=== PATIENT | female | born 1990 | race Caucasian/White ===

== ENCOUNTER 2018-05-28 15:16 | Emergency (ER) | payer MEDICAID ==
--- OUTSIDE RECORDS SUMMARY | 2018-05-28 15:28 | XMS REPORT | Continuity of Care Document ---
:1990 External Reference #:[id number] Author Name Charito Hernandez NP Address [address] [place] [id number] Care Team Providers Name Role Phone Ivone Devine MD Primary Care Physician Unavailable Payers Type Date Identification Numbers Payment Provider Subscriber Expires: 2018 Policy Number: [id number] Gerson Galvez PayID: [id number] [place] [address] Effective: 2018 Policy Number: [id number] Medicaid -Jay Bonny Galvez PayID: [id number] [place] [address] Advance Directives Description No Information Available Problems Date Description Provider Status Onset: 01/21/2015 Smoker Sancho Baker NP Active Onset: 01/21/2015 Drug abuse Sancho Baker NP Active Family History Date Family Member(s) Problem(s) Comments General Colon Cancer Maternal grandfather Father Alive Father No Current Problems Mother Alive Mother No Current Problems ( previous history said mom had breast cancer, patient now denies.) Social History Type Date Description Comments Sex Female Education Highest level completed, 1 year of college Marital Status Legal Status: Work Status Unemployed Tobacco Use Reviewed: Never Smoked Cigars 05/22/18 Tobacco Use Reviewed: Never Smoked A Pipe 05/22/18 Smoking Status Reviewed: Never Smoked A Pipe 05/22/18 Tobacco Use Reviewed: Never Used Smokeless 05/22/18 Tobacco ETOH Use Denies alcohol use Recreational Drug Use Former Drug User Recent rehab, entering correction house this month. Tobacco Use Reviewed: Light tobacco smoker 05/22/18 (10 or fewer cigarettes/day) Tattoo/Piercing Tattoo professionally completed Sun Exposure Does not use sunscreen Currently Active Patient is currently not sexually active Last [place] 3 months ago Condom Use Frequently Contraceptive Methods Past methods include and nexplanon in 2012 condoms Age 1st [place] 12 Years Old # Partners in a Lifetime 1 over the past 2 years. STD's Chlamydia 2011 UNKNOWN 05/22/2018 Never E-Cigarette user Allergies, Adverse Reactions, Alerts Date Description Reaction Status Severity Comments 01/21/2015 Latex Active 01/21/2015 Aspirin Active 01/21/2015 Ibuprofen Active Medications Medication Date Status Form Strength Qnty SIG Indications Ordering Provider Ortho Active Tablets 0.35mg 28tabs take one Z30.011 In [facility] Micronor 018 table every MD Arnoldo day Ortho Active Tablets 0.35mg 84tabs take one Z30.011 In [facility] Micronor 018 table every MD Arnoldo day Lexapro Active Unknown 000 Gabapentin Active Tablets 600mg 3 times a Unknown 000 day Metrogel-Vagi Hx Gel 0.75% QS 1 applicator 616.10 Sancho nal 015 - at night for DIPESH Baker 5 nights. 018 Neurontin /0 Hx Unknown 000 - 018 Topamax //0 Hx Unknown 000 - 018 Trazodone HCL 0 Hx Unknown 000 - 018 Ativan /0 Hx Unknown 000 - 018 Immunizations Description No Information Available Vital Signs Date Vital Result Comment 05/22/2018 12:01pm BP Systolic 112 mmHg BP Diastolic 68 mmHg Height 71 inches 5'11" Weight 146.00 lb BMI (Body Mass Index) 20.4 kg/m2 01/21/2015 11:31am BP Systolic 80 mmHg BP Diastolic 60 mmHg Height 69.5 inches 5'9.50" Weight 138.00 lb BMI (Body Mass Index) 20.1 kg/m2 Last Menstrual Period [id number] Results Test Date Facility Test Result H/L Range Note Laboratory test 05/22/2018 [facility] Test neg finding Urine..... Chlam 01/21/2015 [facility] C.Trachomatis NOT DETECTED Not Detected 1 Trach/Neisseria Rna,Tma Gonorroeae Rna Tma N.Gonorrhoeae Rna,Tma NOT DETECTED Not Detected 2 Thinprep Pap Field Map Technician W/RFX HPV Mrna E6/E7 01/21/2015 [facility] Results SEE NOTE 3 Wet Prep.... 01/21/2015 [facility] WBC Smear 5-6 Clue Cells Vag Fluid Wet Prep + Judy Wet Prep - Lactobacillus Wet Prep _ Whiff Wet Prep + Bacteria Wet Prep + PH Wet Prep 5.0 Misc Other Test _ Laboratory test finding 01/21/2015 [facility] Test Urine..... neg Jay Annual Lab Set 01/21/2015 [facility] HGB Blood.... 15.4 Urinalysis DIP Only.... 01/21/2015 [facility] Urine Leukocyte Esterase QN + Urine Nitrite QN N Urine Blood N Urine PH 5 Urine Protein Random ++ Urine Ketone Random + Urine Glucose QN Random N 1 This test was performed using the APTIMA COMBO2(R) Assay (GEN-PROBE(R). The analytical performance characteristics of this assay, when used to test SurePath(R) specimens have been determined by [employer]. 2 This test was performed using the APTIMA COMBO2(R) Assay (GEN-PROBE(R). The analytical performance characteristics of this assay, when used to test SurePath(R) specimens have been determined by [employer]. 3 GYNECOLOGICAL CYTOLOGY REPORT Thinprep TIS PAP w/rfx to HPV E6/E7 REPORT STATUS: FINAL CLINICAL INFORMATION: Routine exam SLIDES / SOURCE: 1 / Cervix, Endocervix STATEMENT OF ADEQUACY: Satisfactory for evaluation. Endocervical/transformation zone component present. GENERAL CATEGORIZATION: EPITHELIAL CELL ABNORMALITY INTERPRETATION/RESULT: Atypical Squamous Cells of Undetermined Significance (ASC-US) Shift in vaginal nanda suggestive of bacterial vaginosis. COMMENT: This Pap test has been evaluated with computer assisted technology. CONTRACT PROJECT MANAGER: ANALY MERCADO([facility]) For informational purposes: All cytology specimens are [facility] at [facility]. [address] [place] [id number] PATHOLOGIST: Charity Barnett MD, Board Certified in Anatomic Pathology and Cytopathology (electronic signature) For questions regarding this report call Anatomic Pathology at [phone] HPV mRNA E6/E7 HPV mRNA E6E7 Detected REFERENCE RANGE: NOT DETECTED This test was performed using the APTIMA HPV Assay ([employer] This assay detects E6/E7 viral messenger RNA (mRNA) from 14 high-risk HPV types (16,18,31,33,35,39,45,51,52,56,58,59,66,68). 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 11:00a (general) (routine) w/o abn findings Z30.011 Encounter for initial prescription of contraceptive pills N91.2 Amenorrhea, unspecified Z12.4 Encounter for screening for malignant neoplasm of cervix Z32.02 Encounter for test, result negative Z11.3 Encntr screen for infections w sexl mode of transmiss E04.1 Nontoxic single thyroid nodule Plan of Treatment Future Appointment(s):06/05/2018 9:30 am - CERTIFIED COATINGS INSPECTOR at [facility]05/22/2018 - Charito Hernandez NPZ01.419 Encounter for gynecological examination (general) (routine) Comments:Reviewed healthy diet, exercise and safety with patient who states understanding.Counseled on Preventive , STI Awareness, Seat Belt Use, and Self Breast ExamFollow up:F/u in one year for annual. Sooner prn any concerns.Z30.011 Encounter for initial prescription of contraceptive pillsNew Medication:Ortho Micronor 0.35 mg - take one table every dayOrtho Micronor 0.35 mg - take one table every dayComments:Start OBC today after labs are drawn , use back up method for 7 days. Call for any shortness of breath, chest, leg, or arm pain that is sudden and severe. Call for abnormal pkfarcyuO15.2 Amenorrhea, unspecifiedNew Labs:HCG Beta QN, Ordered: 05/22/18TSH & Free T4, Ordered: SH & LH, Ordered: 05/22/18HGB Blood...., Ordered: 05/22/18Esr Sedimentation Rate, Ordered: 05/22/18Prolactin Baseline, Ordered: Comments:Obtain labs prior to starting OBC todayFollow up:2 cesieV50.4 Encounter for screening for malignant neoplasm of iashxcN33.02 Encounter for test, result pjckkkrhA63.3 Encounter for screening for infections with a predominantly sexual mode of transmissionFollow up:Follow up if any further symptoms.E04.1 Nontoxic single thyroid nodule
[2018-05-28 15:39] VITALS: BP 113/62
--- NOTE | 2018-05-28 16:00 | UC ---
Complaint Female HPI - HPI Summary HPI Summary: 28 year old female presents with 2 day history of dysuria, frequency, urgency, and sensation that she is unable to fully empty her bladder. Associated with some low back pain. Denies fever, chills, abdominal pain, nausea, vomiting, hematuria, vaginal discharge, or dyspareunia. LMP unknown. - History Of Current Complaint Chief Complaint: UCGU Stated Complaint: URINARY Time Seen by Provider: 05/28/18 15:38 Hx Obtained From: Patient Hx Last Menstrual Period: JANUARY 2010, HAS HAD PREG TEST WHICH WERE NEGATIVE. Onset/Duration: Gradual Onset, Lasting Days - 2 Timing: Intermittent Severity Currently: Moderate Pain Intensity: 5 Character: Burning Aggravating Factor(s): Urination Alleviating Factor(s): Nothing Associated Signs And Symptoms: Positive: Back Pain. Negative: Fever, Vaginal Bleeding/Discharge, Vaginal Discharge, Nausea, Vomiting(# Of Episodes =), Genital Swelling, Genital Blisters - Allergies/Home Medications Allergies/Adverse Reactions: Allergies Allergy/AdvReac Type Severity Reaction Status Date / Time latex Allergy Unknown rash, Verified 05/28/18 15:30 itching and redness Home Medications: Home Medications Escitalopram Oxalate [Lexapro 20 mg] 20 mg PO DAILY 05/28/18 [History Confirmed 05/28/18] Gabapentin CAP(*) [Neurontin 300 CAP(*)] 300 mg PO TID 05/28/18 [History Confirmed 05/28/18] cloNIDine TAB* [Catapres 0.1 MG TAB*] 0.1 mg PO DAILY 05/28/18 [History Confirmed 05/28/18] PMH/Surg Hx/FS Hx/Imm Hx Previously Healthy: Yes Psychological History: Anxiety, Depression - Surgical History Surgical History: Yes Surgery Procedure, Year, and Place: emergency laparotomy 06/2012/left fallopian tube removed [facility] for ectopic . EMERGENCY C- SECTION - Family History Known Family History: Positive: Non-Contributory - Social History Occupation: Unemployed Lives: Alone Alcohol Use: None Substance Use Type: None Substance Use Comment - Amount & Last Used: 2 times a week Smoking Status (MU): Current Every Day Smoker Type: Cigarettes Amount Used/How Often: 1/2 PPD Have You Smoked in the Last Year: Yes When Did the Patient Quit Smoking/Using Tobacco: 2011 Household Exposure Type: Cigarettes - Immunization History Most Recent Influenza Vaccination: yes Review of Systems All Other Systems Reviewed And Are Negative: Yes Constitutional: Negative: Fever, Chills Gastrointestinal: Negative: Abdominal Pain, Vomiting, Nausea Genitourinary: Positive: Dysuria, Frequency, Urgency. Negative: Hematuria, Vaginal/Penile Burning, Vaginal/Penile Itching, Vaginal/Penile Discharge, Vaginal/Penile Pain, Vaginal/Penile Tenderness, Ulceration/Lesion, Abnormal Bleeding Is Patient Immunocompromised?: No Physical Exam - Summary Physical Exam Summary: GENERAL APPEARANCE: Well developed, well nourished, alert and cooperative, and appears to be in no acute distress. CARDIAC: Normal S1 and S2. No S3, S4 or murmurs. Rhythm is regular. There is no peripheral edema, cyanosis or pallor. Extremities are warm and well perfused. Capillary refill is less than 2 seconds. LUNGS: Clear to auscultation and percussion without rales, rhonchi, wheezing or diminished breath sounds. ABDOMEN: Positive bowel sounds. Soft, nondistended, nontender. No guarding or rebound. No masses or hepatosplenomegally. No CVA tenderness. MUSKULOSKELETAL: ROM intact to all extremities. No joint erythema or tenderness. Normal muscular development. Normal gait. BACK: Examination of the spine reveals normal gait and posture, no spinal deformity or tenderness, decreased range of motion or muscular spasm. EXTREMITIES: No significant deformity or joint abnormality. No edema. Peripheral pulses intact. NEUROLOGICAL: Awake, alert, and oriented. SKIN: Skin normal color, texture and turgor with no lesions or eruptions. Triage Information Reviewed: Yes Vital Signs: Initial Vital Signs Temp 99.4 F 05/28/18 15:33 Pulse 89 05/28/18 15:33 Resp 18 05/28/18 15:33 BP 113/62 05/28/18 15:33 Pulse Ox 99 05/28/18 15:33 Vital Signs Reviewed: Yes Diagnostics - Laboratory Diagnostic Studies Completed/Ordered: POC UA 2+ protein, 2+ blood, 2+ leukocytes. Urine negative. Urine culture pending. Complaint Female Dx - Course Course Of Treatment: 28 year old female presents with 2 day history of dysuria, frequency, urgency, and sensation that she is unable to fully empty her bladder. Associated with some low back pain. Denies fever, chills, abdominal pain, nausea, vomiting, hematuria, vaginal discharge, or dyspareunia. Exam unremarkable. POC UA 2+ protein, 2+ blood, 2+ leukocytes. Urine negative. Urine culture pending. Will treat empirically for acute cystitis with Macrobid BID x 5 days and provide Pyridium TID x 2 days for discomfort. She is to follow up with her PCP in 5-7 days if symptoms persist. Warning symptoms reviewed. Verbalizes understanding and agrees with POC. - Differential Dx/Diagnosis Differential Diagnosis/HQI/PQRI: , Urinary Tract Infection Provider Diagnosis: Acute cystitis with hematuria Discharge - Sign-Out/Discharge Documenting (check all that apply): Patient Departure All imaging exams completed and their final reports reviewed: No Studies - Discharge Plan Condition: Stable Disposition: HOME Prescriptions: Nitrofurantoin Monohyd/M-Cryst [Macrobid 100 mg Capsule] 100 mg PO BID #10 cap Phenazopyridine TAB* [Pyridium 100 mg TAB*] 100 mg PO TID #6 tab Patient Education Materials: Urinary Tract Infection in Women (ED) Referrals: Ivone Devine MD [Primary Care Provider] - 5 Days (If no improvement in symptoms.) Additional Instructions: Your urine test in the clinic today is suggestive of a urinary tract infection. We will start you on an antibiotic to treat for the infection. We will also send a urine culture today to see what bacteria grow out and make sure the antibiotic you were prescribed is appropriate to treat the infection. It will take 48-72 hours to get these results. We will contact you if there is any change in your treatment plan. Start Macrobid 1 tab twice a day for 5 days. Take Pyridium 1 tablet every 8 hours for next 2 days to help with the discomfort. This medication will turn your urine an orange color. Drink plenty of fluids. To help prevent urinary tract infections: 1) Be sure to wipe from front to back. 2) Urinate immediately after any sexual intercourse. 3) Avoid taking bubble baths. Follow up with your primary care provider in 5-7 days if symptoms persist. Seek immediate medical attention in the emergency room if you develop fever greater than 100.5 F, have severe abdominal pain, persistent vomiting, or any worsening of symptoms. - Billing Disposition and Condition Condition: STABLE Disposition: Home
== END 2018-05-28 16:10 | disposition home or self-care (01) ==
LOC: UCCORT 15:16
DX: N30.01 Acute cystitis with hematuria (principal); F17.210 Nicotine dependence, cigarettes, uncomplicated
CPT/HCPCS: 81003; 84702; 87077; 87086; 99212; G0463